=== PATIENT | female | born 1945 | race Caucasian/White ===

== ENCOUNTER → 2017-03-18 | Outpatient (CLI) | payer OTHER | LOC: BRMIMAGING 08:31 | PROVIDERS: ATTEND Internal Medicine | DX: Z13.820 Encounter for screening for osteoporosis (principal); M85.80 Other specified disorders of bone density and structure, unspecified site; E07.9 Disorder of thyroid, unspecified; Z79.899 Other long term (current) drug therapy; Z78.0 Asymptomatic menopausal state ==

== ENCOUNTER 2018-04-17 11:15 | Inpatient (IN) | payer OTHER ==
--- NOTE | 2018-04-17 14:02 | PDGENHP ---
History and Physical - Chief Complaint Cough, Fever - History of Present Illness Tiffany Pastor is a 72 yo F with a PMHx of Hypothyroidism, LBP who presents to [facility] for 1 week of cough. She reports that she has been on a trip to [place] and [place] for the past 3 weeks. She reports cold symptoms such as nasal congestion for the past week or so with a cough that is minimally productive. She brought Azithromycin on the trip and started taking it 3 days ago. She also purchased an inhaler in [place] which she states helps with her breathing. She has an acute onset of fever and chills for the past 2 days with a Tmax of 103. She denies any chest pain, n/v, dysuria, headache, edema, palpitations. She reports some loose stools but denies any abdominal pain. She says that in the past when she has had URIs she has had "asthma" attacks where she requires inhalers in the past. She reports using an inhaler almost never when she is in a normal state of health. History Information I have personally reviewed and updated: family history, medical history, social history, surgical history - Past Medical History Additional medical history: Hypothyroidism, LBP - Surgical History Reports: no pertinent surgical hx - Family History Positive for: non-pertinent - Social History Smoking Status: Never smoked Review of Systems Review of Systems: ROS: 10pt was reviewed & negative except for what was stated in HPI & below Physical Exam Physical Exam: Constitutional: no apparent distress Eyes: PERRL Ears, Nose, Mouth, Throat: dry mucous membranes Cardiovascular: regular rate and rhythym Respiratory: reduced air movement, expiratory wheeze Gastrointestinal: soft, non-tender abdomen Skin: warm Musculoskeletal: full muscle strength Neurologic: AAOx3 Psychiatric: interacting appropriately Assessment & Plan Assessment: Community Acquired Pneumonia - Presenting with 1 week of cough, cold symptoms, onset of fever/chills in past 2 days - CXR showing bilateral consolidations with peribronchial thickening - S/p 1 gm Ceftriaxone in ED, will continue Ceftriaxone 2 mg q24 hours, Azithromycin 500 mg for now, duration pending clinical improvement - Also given 125 mg IV Solu-medrol at urgent care, component of expiratory wheezing on exam, will continue PO Prednisone 40 mg qd - Flu negative at urgent care, will order Respiratory PCR to evaluate for other viral syndromes - Requiring 2L 02 to maintain sats over 90%, wean 02 as tolerated Sepsis - Presenting with Fever (101.4) and Tachycardia (110) in Urgent care - S/p 1L IVF in ED, normotensive on admission, will continue maintenance IVF - 2/2 to PNA, management as above Hypothyroidism - Continue home Synthroid Chronic LBP w/ Radiculopathy - Continue home medications including Diclofinac, Gabapentin, and Tylenol FEN: IVF, Regular DVT PPx: Lovenox Code: FULL Dispo: Admit to Observation
[2018-04-17] MEDS ORDERED: ONDANSETRON 4 MG/2 ML VIAL IVP PRN (14:21)
[2018-04-17] MEDS ORDERED: ALBUTEROL 3 ML DEYVIAL IH PRN (14:21)
[2018-04-17] MEDS ORDERED: ONDANSETRON DISINTEGRATING 4 MG TAB PO PRN (14:21)
[2018-04-17] MEDS: AZITHROMYCIN IV 500 MG in NS 250 ML IV SCH (15:03)
[2018-04-17] MEDS: NS 1,000 ML IV SCH (15:08)
[2018-04-17] MEDS: ACETAMINOPHEN 325 MG TAB PO PRN (15:18)
[2018-04-17 15:30] LABS: PLATELET COUNT 270 10^3/uL (150-400)
[2018-04-17] MEDS ORDERED: CARBOXYMETHYLCELLULOSE 1% 0.4 ML DROPERETTE EACHEYE PRN (15:51)
[2018-04-17] MEDS ORDERED: ALBUTEROL 60 PUFFS/8 GM MDI IH PRN (15:51)
[2018-04-17] MEDS: IPRATROPIUM/ALBUTEROL 3 ML DEYVIAL IH SCH ×2 (16:10→20:22)
[2018-04-17] MEDS: PRAVASTATIN SODIUM 40 MG TAB PO SCH (17:26)
[2018-04-17] MEDS: ACETAMINOPHEN 500 MG TAB PO SCH (20:42)
[2018-04-17] MEDS: MELATONIN 3 MG TAB PO PRN (20:43)
[2018-04-17] MEDS: AMITRIPTYLINE HCL 10 MG TAB PO SCH (20:43)
[2018-04-17] MEDS: GABAPENTIN 300 MG CAP PO SCH (20:43)
[2018-04-18 04:44] LABS: PLATELET COUNT 284 10^3/uL (150-400)
[2018-04-18] MEDS: IPRATROPIUM/ALBUTEROL 3 ML DEYVIAL IH SCH ×4 (05:30→19:35)
[2018-04-18] MEDS: LEVOTHYROXINE 50 MCG TAB PO SCH (07:07)
[2018-04-18] MEDS: predniSONE 20 MG TAB PO SCH (08:20)
[2018-04-18] MEDS: MULTIVITAMINS 1 EACH TAB PO SCH (08:20)
[2018-04-18] MEDS: DICLOFENAC SODIUM 75 MG TAB PO SCH (08:21)
[2018-04-18] MEDS: ENOXAPARIN 40 MG/0.4 ML SYR SC SCH (08:22)
[2018-04-18] MEDS: AZITHROMYCIN IV 500 MG in NS 250 ML IV SCH (08:35)
[2018-04-18] MEDS: ACETAMINOPHEN 325 MG TAB PO PRN (10:07)
--- NOTE | 2018-04-18 10:50 | ASMTCMCOM ---
CM Note CM Note Notes: Patient admitted for ongoing cough and fever, not responding to tx she was given at Urgent Care. She's been dx w CAP. She is normally independent and lives with her . She may need home O2 upon discharge - in 1-2 days - this will be handled by Respiratory Therapy. I do not anticipate any CM discharge needs. Date Signed: 04/18/2018 10:49 AM Electronically Signed By:Sobeida Junior RN
[2018-04-18] MEDS: NS 1,000 ML IV SCH (12:13)
--- NOTE | 2018-04-18 12:43 | HOSPPROG ---
Hospitalist Progress Note Assessment/Plan: Community Acquired Pneumonia - Presenting with 1 week of cough, cold symptoms, onset of fever/chills in past 2 days - CXR showing bilateral consolidations with peribronchial thickening - S/p 1 gm Ceftriaxone in ED, will continue Ceftriaxone 2 mg q24 hours, Azithromycin 500 mg for now, duration pending clinical improvement - Also given 125 mg IV Solu-medrol at urgent care, component of expiratory wheezing on exam, will continue PO Prednisone 40 mg qd - Flu negative at urgent care, will order Respiratory PCR to evaluate for other viral syndromes - Requiring 2L 02 to maintain sats over 90%, wean 02 as tolerated Sepsis - Presenting with Fever (101.4) and Tachycardia (110) in Urgent care - S/p 1L IVF in ED, normotensive on admission, will continue maintenance IVF - 2/2 to PNA, management as above Hypothyroidism - Continue home Synthroid Chronic LBP w/ Radiculopathy - Continue home medications including Diclofinac, Gabapentin, and Tylenol FEN: IVF, Regular DVT PPx: Lovenox Code: FULL Dispo: Admit to Observation Objective: Vital Signs Temp Pulse Resp BP Pulse Ox 98.1 F 86 16 125/64 H 92 04/18/18 11:50 04/18/18 11:50 04/18/18 11:50 04/18/18 11:50 04/18/18 11:50 Microbiology 04/18/18 06:46 Gastrointestinal Tract Panel (PCR) - Final Stool No Organism Detected By Pcr 04/17/18 15:15 Respiratory Panel (PCR) - Final Nasal, Sinus - Anaerobic Tube/Swab Human Metapneumovirus Detected Laboratory Results 04/18/18 04:30 04/18/18 04:30 04/17/18 04/18/18 04/19/18 11:59 11:59 11:59 Intake Total 600 Balance 600
[2018-04-18] MEDS: PRAVASTATIN SODIUM 40 MG TAB PO SCH (18:30)
[2018-04-18] MEDS: AMITRIPTYLINE HCL 10 MG TAB PO SCH (20:24)
[2018-04-18] MEDS: GABAPENTIN 300 MG CAP PO SCH (20:25)
[2018-04-18] MEDS: ACETAMINOPHEN 500 MG TAB PO SCH (20:25)
[2018-04-18] MEDS: MELATONIN 3 MG TAB PO PRN (20:25)
[2018-04-18] MEDS ORDERED: BENZONATATE 100 MG CAP PO PRN (21:14)
[2018-04-19] MEDS: IPRATROPIUM/ALBUTEROL 3 ML DEYVIAL IH SCH ×4 (05:24→21:52)
[2018-04-19] MEDS: LEVOTHYROXINE 50 MCG TAB PO SCH (06:23)
[2018-04-19] MEDS: AZITHROMYCIN IV 500 MG in NS 250 ML IV SCH (07:46)
[2018-04-19] MEDS: predniSONE 20 MG TAB PO SCH (07:52)
[2018-04-19] MEDS: MULTIVITAMINS 1 EACH TAB PO SCH (07:52)
[2018-04-19] MEDS: DICLOFENAC SODIUM 75 MG TAB PO SCH (07:52)
[2018-04-19] MEDS: ENOXAPARIN 40 MG/0.4 ML SYR SC SCH (07:53)
--- NOTE | 2018-04-19 11:57 | PDMN ---
Medical Necessity Medical necessity: Change to inpt as of 04/18/18 @ 17:56 per MD order and [facility] M- 282, Pneumonia, Community Acquired, A-2days. 72 y/o w/cough/fever/chills admitted w/community acquired PNA and sepsis, CXR shows bilat consolidations w/ peribronchial thickening, fever 101.4 and tachy on admit. IV ABX's, IV Solu- medrol for wheezing, upgraded to inpt for ongoing treatment and still requiring suppl O2 to keep SaO2>90%, still occ tachy. Est LOS>2MN.
[2018-04-19] MEDS: PRAVASTATIN SODIUM 40 MG TAB PO SCH (18:20)
[2018-04-19] MEDS: ACETAMINOPHEN 500 MG TAB PO SCH (21:14)
[2018-04-19] MEDS: MELATONIN 3 MG TAB PO PRN (21:14)
[2018-04-19] MEDS: GABAPENTIN 300 MG CAP PO SCH (21:14)
[2018-04-19] MEDS: AMITRIPTYLINE HCL 10 MG TAB PO SCH (21:14)
[2018-04-20] MEDS: IPRATROPIUM/ALBUTEROL 3 ML DEYVIAL IH SCH ×2 (05:39→11:43)
[2018-04-20] MEDS: LEVOTHYROXINE 50 MCG TAB PO SCH (06:25)
[2018-04-20] MEDS: AZITHROMYCIN IV 500 MG in NS 250 ML IV SCH (07:57)
[2018-04-20] MEDS: predniSONE 20 MG TAB PO SCH (07:57)
[2018-04-20] MEDS: DICLOFENAC SODIUM 75 MG TAB PO SCH (07:58)
[2018-04-20] MEDS: MULTIVITAMINS 1 EACH TAB PO SCH (07:58)
[2018-04-20] MEDS: ENOXAPARIN 40 MG/0.4 ML SYR SC SCH (08:11)
--- NOTE | 2018-04-20 10:54 | PDHOMEO2F ---
Home Oxygen Face to Face Home Orders: I certify that a physician or a nurse practitioner or physician's nursing assistants teacher has had a [id number] encounter with this patient on the date of this order due to the diagnosis listed, which relates to the primary reason the patient requires home oxygen. Alternative treatments have been tried, or considered, and deemed ineffective. It is anticipated that supplemental oxygen will result in improvement with treatment. Home oxygen qualifying diagnosis: acute respiratory failure with hypoxia SpO2 on room air (%): 86 Frequency of home oxygen needed: during sleep Home oxygen liters per minute: 1L Home oxygen delivery device: nasal cannula Concentrator: Yes E-tanks for mobility and back up: No I certify that, based on these findings, the home oxygen is medically necessary for this patient for the following length of time. Length of time home oxygen needed: 1 month
[2018-04-20 11:23] VITALS: BP 134/76
--- NOTE | 2018-04-20 13:10 | ASDISCHSUM ---
Discharge Information Plan Status:Home with No Needs Medically Cleared to Leave:04/19/2018 Discharge Date:04/19/2018 CM D/C Disposition:Home, Routine, Self-Care ADT D/C Disposition:Home, Routine, Self-Care Projected Discharge Date:04/19/2018 Transportation at D/C:Family Discharge Delay Reason: Follow-Up Date:04/19/2018 Discharge Slot: Final Diagnosis:PNA Placement Information Patient Contact Information Contact Name:JEFFREY Relationship: Address:[address] [address] [facility] [address] [facility] Work Phone: City:[place] Phone: State/Zip Code:[place] [address] Email: Financial Information Financial Class:Modern [employer] Primary Plan Desc:[facility] OPEN ACC LOCAL Primary Plan Number:[id number] Secondary Plan Desc: Secondary Plan Number: Assessment Information LACE LACE Length of stay for Answers: 3 days current admission Acuity / Level of Answers: Yes Care: Did the patient have an inpatient admission? Comorbidities - select Answers: Other Notes: Hypothyroid; Reactive all that apply airway disease # of Emergency department Answers: 1-2 visits in the last 6 months Score: 8 Date Signed: 04/20/2018 01:09 PM Electronically Signed By:Renetta Anna [facility] CM Progress Note CM Note CM Note Notes: Patient admitted for ongoing cough and fever, not responding to tx she was given at Urgent Care. She's been dx w CAP. She is normally independent and lives with her . She may need home O2 upon discharge - in 1-2 days - this will be handled by Respiratory Therapy. I do not anticipate any CM discharge needs. Date Signed: 04/18/2018 10:49 AM Electronically Signed By:Sobeida Junior RN Case Management Discharge Plan Note Case Management Discharge Discharge Order Complete? Answers: Yes Patient to Obtain Answers: via Family Medications Transportation Arranged Answers: Family/Friends Transport will Pick (Date 04/20/2018 12:00 AM & Time) Family Notified Answers: Yes Discharge Comments Notes: Spoke with pt's RN and hospitalist. Pt lives independently with and will discharge independently. Order placed for home O2 and pt awaiting delivery. No CM needs identified at this time. CM available should needs change. Date Signed: 04/20/2018 01:08 PM Electronically Signed By:Renetta Anna Intervention Information
== END 2018-04-20 13:35 | disposition home or self-care (01) | DRG 871 ==
LOC: F3E 13:34 → OBSVTOIN 04-18 17:56
PROVIDERS: ADMIT Internal Medicine; ATTEND Internal Medicine
DX: A41.9 Sepsis, unspecified organism (principal); J18.8 Other pneumonia, unspecified organism; E03.9 Hypothyroidism, unspecified; M54.16 Radiculopathy, lumbar region
CPT/HCPCS: G0378; G0379; J0456; J0696; J1650; J7512; J7613

== ENCOUNTER → 2018-04-17 | Outpatient (CLI) | payer OTHER | LOC: BMCIMAGING 09:31 | PROVIDERS: ATTEND Family Medicine | DX: R05 Cough (principal); R50.9 Fever, unspecified ==